=== PATIENT | female | born 1985 | race Hispanic/Latino ===

== ENCOUNTER 2018-01-31 06:12 | Emergency (ER) | payer OTHER ==
[~2018-01-31] VITALS: Ht 165.1 cm; Wt 81.2 kg
[2018-01-31] MEDS ORDERED: TRAZODONE HCL50 MG PO (06:42)
[2018-01-31] MEDS ORDERED: PAROXETINE HCL20 MG PO (06:42)
[2018-01-31] MEDS ORDERED: KETOROLAC TROMETHAMINE 30 MG/ML VIAL IV ONE (06:45)
[2018-01-31] MEDS ORDERED: ONDANSETRON HCL INJ 2 MG/ML VIAL IV ONE (06:45)
[2018-01-31 08:45] VITALS: BP 127/68
== END 2018-01-31 08:00 | disposition home or self-care (01) ==
LOC: FSED 06:12
DX: R10.11 Right upper quadrant pain (principal); R11.0 Nausea
CPT/HCPCS: 99283; J1885; J2405

== ENCOUNTER 2018-02-01 08:41 | Observation (INO) | payer OTHER ==
[~2018-02-01] VITALS: Ht 162.6 cm; Wt 81.7 kg
[~2018-02-01 08:41] MED LIST: PAROXETINE HCL20 MG PO; TRAZODONE HCL50 MG PO
--- OUTSIDE RECORDS SUMMARY | 2018-02-01 08:43 | XMS REPORT | Continuity of Care Document ---
Author Author [facility] Organization [facility] Address [address] [place] [address] Phone Unavailable Care Team Providers Care Human Resources Technician Name Role Phone NONSTAFF PCP Unavailable Insurance Providers Guarantor ChrisPaola Address [address] [place] [phone] Email NA Payer Jhonatan [facility] Policy Number [id number] Subscriber's Name Paola Perez Relationship 18 Self / Same As Patient Advance Directives Directive Response Recorded Date/Time Does the patient have an advance directive? No 01/31/18 7:49am Do you have a Directive to Physician? No 01/31/18 7:49am Do you have a Medical Power of Sprinkler Irrigation Equipment Mechanic? No 01/31/18 7:49am Do you have an out of hospital Do Not Resuscitate Order? No 01/31/18 7:49am Do you have any special needs we should be aware of? No 01/31/18 7:49am Do you have a support person here with you today? Yes 01/31/18 7:49am Did patient receive Notice of Privacy Practices? Yes 01/31/18 7:49am Did patient receive patient rights and responsibilities? Yes 01/31/18 7:49am Problems No problem information available. Medications Current Home Medications Medication Dose Units Route Directions Days Qty Instructions Start Date Paroxetine Hcl 20 Mg Tablet 20 Mg Oral Daily 30 Tab Trazodone Hcl 50 Mg Tablet 50 Mg Oral Daily 30 Tab Social History Smoking Status Start Date Stop Date Never Smoker Hospital Discharge Instructions No hospital discharge instruction information available. Plan of Care Discharge Date 01/31/18 8:00am Disposition HOME, SELF-CARE Condition at Discharge Improved Instructions/Education Provided Abdominal Pain - Adult Forms Provided Work/School Excuse Prescriptions See Medication Section Additional Instructions/Education take over the counter pepcid and tylenol as needed Functional Status No functional status information available. Allergies, Adverse Reactions, Alerts No allergy information available. Immunizations No immunization information available. Vital Signs Acute Vital Signs Vital Response Date/Time Temperature (Fahrenheit) 97.8 degrees F (97.6 - 99.5) 01/31/2018 8:45am Pulse Pulse Rate (adult) 63 bpm (60 - 90) 01/31/2018 8:45am Respiratory Rate 16 bpm (12 - 24) 01/31/2018 8:45am Blood Pressure 127/68 mm Hg 01/31/2018 8:45am Height 5 ft 5 in 01/31/2018 6:20am Weight 179.06 lb 01/31/2018 6:20am Body Mass Index 29.8 kg/m^2 01/31/2018 6:20am Results No relevant diagnostic test, laboratory data and/or discharge summary information available. Procedures No procedure information available. Encounters Encounter Location Arrival/Admit Date Discharge/Depart Date Attending Provider Departed Emergency Room [facility] 01/31/18 6:12am 8:00am VENICE DELEON DO
[2018-02-01] MEDS ORDERED: KETOROLAC TROMETHAMINE 30 MG/ML VIAL IV STA (08:53)
[2018-02-01] MEDS ORDERED: SODIUM CHLORIDE FLUSH 10 ML SYR INJ PRN (09:00)
[2018-02-01] MEDS ORDERED: ONDANSETRON HCL 4 MG ORAL DISINTEGRATING TAB PO ONE (09:00)
[2018-02-01] MEDS ORDERED: SODIUM CHLORIDE 0.9% 1000ML 1,000 ML IV ONE (09:30)
[2018-02-01] MEDS: PIPER-TAZ 3.375 GM 3.375 GM/100 ML BAG IV SCH ×2 (12:29→18:27)
[2018-02-01 13:26] VITALS: BP 115/59
[2018-02-01] MEDS: HYDROMORPHONE 1MG/1ML INJ IV PRN (15:35)
[2018-02-01] MEDS: ONDANSETRON HCL INJ 2 MG/ML VIAL IV PRN (15:35)
[2018-02-01] MEDS ORDERED: BUPIVACAINE 0.25%/EPI 30ML SDV INJ ONE ×2 (15:38→15:57)
[2018-02-01 15:51] VITALS: BP 121/75
[2018-02-01] MEDS ORDERED: GLYCOPYRROLATE INJ 1MG/ 5 ML SYR ONE (17:03)
[2018-02-01] MEDS ORDERED: NEOSTIGMINE 5 MG/5ML SYR ONE (17:03)
[2018-02-01] MEDS ORDERED: PROPOFOL IV EMULSION 10 MG/ML 20 ML VIAL ONE (17:03)
[2018-02-01] MEDS ORDERED: DEXAMETHASONE SOD PHOS INJ 4 MG/ML VIAL ONE (17:03)
[2018-02-01] MEDS ORDERED: LIDOCAINE HCL 2% LOCAL INJ 5 ML SDV VIAL INJ ONE (17:03)
[2018-02-01] MEDS ORDERED: KETOROLAC TROMETHAMINE 30 MG/ML VIAL ONE (17:03)
[2018-02-01] MEDS ORDERED: ROCURONIUM BROMIDE 10 MG/ML 5ML VIAL ONE (17:03)
[2018-02-01] MEDS ORDERED: ONDANSETRON HCL INJ 2 MG/ML VIAL ONE (17:03)
[2018-02-01 18:20] VITALS: BP 128/58
[2018-02-01] MEDS: D5.45%NS/KCL 20MEQ 1,000 ML IV SCH (18:25)
[2018-02-01] MEDS: FAMOTIDINE 20 MG/2 ML VIAL IV SCH (18:27)
[2018-02-01 18:44] VITALS: BP 121/62
[2018-02-01] MEDS ORDERED: MIDAZOLAM HCL 2 MG/2 ML VIAL ONE (19:45)
[2018-02-01] MEDS ORDERED: FENTANYL CITRATE/PF 100MCG/2 ML INJ ONE (19:45)
[2018-02-01 20:00] VITALS: BP 116/67
[2018-02-02] VITALS: BP 130/61
[2018-02-02] MEDS: PIPER-TAZ 3.375 GM 3.375 GM/100 ML BAG IV SCH ×2 (01:26→05:40)
[2018-02-02 04:00] VITALS: BP 121/61
[2018-02-02] MEDS: D5.45%NS/KCL 20MEQ 1,000 ML IV SCH (05:06)
[2018-02-02 06:04] LABS: BASOPHILS % 0.3 % (0.0-1.0); EOSINOPHILS % 0.1 % (0.0-6.0); HEMATOCRIT 35.1 % (34.2-44.1); HEMOGLOBIN 11.5 g/dL (12.0-16.0); LYMPHOCYTES # (AUTO) 1.2 (1.0-3.2); LYMPHOCYTES % 11.4 % (18.0-39.1); MEAN CORPUSCULAR HEMOGLOBIN 27.4 pg (28-32); MEAN CORPUSCULAR HGB CONC 32.8 g/dL (31-35); MEAN CORPUSCULAR VOLUME 83.6 fL (81-99); MONOCYTES # (AUTO) 0.8 (0.2-0.8); MONOCYTES % 7.1 % (4.4-11.3); NEUTROPHILS # (AUTO) 8.7 (2.1-6.9); NEUTROPHILS % 80.9 % (38.7-80.0); PLATELET COUNT 206 x10e3/uL (140-360); RED CELL DISTRIBUTION WIDTH 13.7 % (11.7-14.4)
[2018-02-02 06:25] LABS: ANION GAP 10.9 mmol/L (8-16); BLOOD UREA NITROGEN 5 mg/dL (7-26); BUN/CREATININE RATIO 8 (6-25); CALCIUM 8.9 mg/dL (8.4-10.2); CARBON DIOXIDE 24 mmol/L (22-29); CHLORIDE 107 mmol/L (98-107); CREATININE, SERUM 0.65 mg/dL (0.57-1.11); EST GLOMERULAR FILTRATION RATE > 60 ML/MIN (60-); GLUCOSE 131 mg/dL (74-118); POTASSIUM 3.9 mmol/L (3.5-5.1); SODIUM 138 mmol/L (136-145)
[2018-02-02 08:00] VITALS: BP 109/55
[2018-02-02] MEDS: FAMOTIDINE 20 MG/2 ML VIAL IV SCH (09:00)
[2018-02-02 10:00] VITALS: BP 150/82
[2018-02-02] MEDS: HYDROMORPHONE 1MG/1ML INJ IV PRN (10:31)
[2018-02-02] MEDS: ONDANSETRON HCL INJ 2 MG/ML VIAL IV PRN (10:31)
[2018-02-02 12:00] VITALS: BP 114/56
[2018-02-02 16:00] VITALS: BP 102/57
--- NOTE | 2018-02-02 20:32 | Discharge Summary ---
PRIMARY CARE DOCTOR: Dr. Ho Yuan. FINAL DIAGNOSIS: Acute cholecystitis. BOOTH CLEANER: Dr. Ro. PROCEDURES/STUDIES PERFORMED 1. Abdominal ultrasound. 2. Laparoscopic cholecystectomy. HISTORY: Per H\T\P. HOSPITAL COURSE: Patient was empirically put on Zosyn. Patient underwent uncomplicated laparoscopic cholecystectomy. Today is postop day number 1. She is tolerating p.o. and will be discharged home today. Patient was seen and examined today. CONDITION ON DISCHARGE: Improved. DISCHARGE MEDICATIONS: Please see medication reconciliation form. ROCCO NASH M.D. Job#: [id number] EV cc:HO YUAN MD
== END 2018-02-02 18:00 | disposition home or self-care (01) ==
LOC: FSED 08:41 → MED/SURG2 12:01
PROVIDERS: ADMIT Internal Medicine; ATTEND Internal Medicine
DX: K80.00 Calculus of gallbladder with acute cholecystitis without obstruction (principal); K80.10 Calculus of gallbladder with chronic cholecystitis without obstruction; F41.8 Other specified anxiety disorders
CPT/HCPCS: 36415 ×2; 47562; 76705; 80048; 80076; 81003; 81025; 83690; 85025 ×2; 88304; 96360; 96374; 99284; G0378 ×2; J1100; J1170 ×2; J1885; J2001; J2250; J2405 ×2; J2543 ×2; J7030